=== PATIENT | male | born 1940 | race Caucasian/White ===

== ENCOUNTER 2017-06-30 10:10 | Emergency (ER) | payer MEDICARE ==
[2017-06-30] MEDS ORDERED: NORMAL SALINE 1000 ML 1,000 ML IV ONE ×2 (10:38→13:36)
--- NOTE | 2017-06-30 10:39 | ER Document Report ---
ED Medical Screen (RME) - General Chief Complaint: Abdominal Pain >50 Stated Complaint: ABDOMINAL PAIN Time Seen by Provider: 06/30/17 10:38 Notes: Patient has a several day history of generalized abdominal cramping and pain. Also has had some nausea and decreased appetite. Patient has been "lying in bed all day" per family. Patient was taken to primary care physician today and referred to the emergency department. TRAVEL OUTSIDE OF THE [place] IN LAST 30 DAYS: No - Related Data Allergies/Adverse Reactions: No Known Allergies Allergy (Verified 06/30/17 10:30) Past Medical History - Social History Frequency of alcohol use: None Drug Abuse: None Renal/ Medical History: Denies: Hx Peritoneal Dialysis Physical Exam - Vital signs Vitals: Temp Pulse Resp BP Pulse Ox 97.7 F 78 18 160/72 H 100 06/30/17 10:20 06/30/17 10:20 06/30/17 10:20 06/30/17 10:20 06/30/17 10:20 Course - Vital Signs Vital signs: Temp Pulse Resp BP Pulse Ox 97.7 F 78 18 160/72 H 100 06/30/17 10:20 06/30/17 10:20 06/30/17 10:20 06/30/17 10:20 06/30/17 10:20
[2017-06-30 11:21] LABS: HEMATOCRIT 35.1 % (37.9-51.0); HEMOGLOBIN 11.9 g/dL (13.5-17.0); MEAN CORPUSCULAR HEMOGLOBIN 28.5 pg (27.0-33.4); MEAN CORPUSCULAR HGB CONC 33.9 g/dL (32.0-36.0); MEAN CORPUSCULAR VOLUME 84 fl (80-97); PLATELET COUNT 301 10^3/uL (150-450); RED BLOOD COUNT 4.17 10^6/uL (4.35-5.55)
[2017-06-30 11:39] LABS: ALANINE AMINOTRANSFERASE 49 U/L (21-72); ALBUMIN 3.5 g/dL (3.5-5.0); ALKALINE PHOSPHATASE 140 U/L (38-126); ASPARTATE AMINO TRANSFERASE 29 U/L (17-59); BILIRUBIN,DIRECT 1.9 mg/dL (0.0-0.4); BILIRUBIN,TOTAL 1.9 mg/dL (0.2-1.3); CALCIUM 8.9 mg/dL (8.4-10.2); GLUCOSE 113 mg/dL (75-110); LIPASE 514.2 U/L (23-300); TOTAL PROTEIN 8.3 g/dL (6.3-8.2)
[2017-06-30 11:44] LABS: CARBON DIOXIDE 15 mmol/L (22-30); CHLORIDE 96 mmol/L (98-107); SODIUM 133.8 mmol/L (137-145)
[2017-06-30 11:45] LABS: ANION GAP 23 (5-19)
[2017-06-30 11:48] LABS: BLOOD UREA NITROGEN 187 mg/dL (7-20)
[2017-06-30 11:49] LABS: POTASSIUM 6.3 mmol/L (3.6-5.0)
[2017-06-30 11:50] LABS: ABSOLUTE LYMPHOCYTES# (MANUAL) 0.3 10^3/uL (0.5-4.7); ABSOLUTE MONOCYTES # (MANUAL) 0.6 10^3/uL (0.1-1.4); ABSOLUTE NEUTROPHILS# (MANUAL) 14.9 10^3/uL (1.7-8.2); BASOPHILS % (MANUAL) 0 % (0-2); EOSINOPHILS % (MANUAL) 1 % (0-6); LYMPHOCYTES % (MANUAL) 2 % (13-45); MONOCYTES % (MANUAL) 4 % (3-13); SEGMENTED NEUTROPHILS % (MAN) 93 % (42-78); TOTAL CELLS COUNTED 100
[2017-06-30] MEDS ORDERED: INSULIN REG, HUMAN 100 UNIT/ML 3 ML VIAL (PYX) IV ONE (11:51)
[2017-06-30] MEDS ORDERED: SODIUM BICARBONATE 8.4% INJ 50 MEQ/50 ML DISP.SYRIN IV ONE (11:51)
[2017-06-30] MEDS ORDERED: SODIUM POLYSTYRENE SULFONATE 15 GM/60 ML PO ONE ×2 (11:51→12:25)
[2017-06-30] MEDS ORDERED: DEXTROSE 50%-WATER 25 GM/50 ML DISP.SYRIN IV ONE (11:51)
[2017-06-30 11:52] LABS: BURR CELLS SLIGHT; POIKILOCYTOSIS SLIGHT; SCHISTOCYTES SLIGHT; TARGET CELLS SLIGHT; TOXIC GRANULATION 1+
[2017-06-30 12:00] LABS: PLATELET COMMENT ADEQUATE
[2017-06-30] MEDS ORDERED: ALBUTEROL SULFATE 0.083% NEB 2.5 MG/3 ML AMPUL NEB ONE (12:14)
[2017-06-30] MEDS ORDERED: CALCIUM GLUCONATE 1000 MG/10 ML INJ IV ONE (12:21)
--- NOTE | 2017-06-30 12:30 | ER Document Report ---
ED General - General Chief Complaint: Abdominal Pain >50 Stated Complaint: ABDOMINAL PAIN Time Seen by Provider: 06/30/17 10:38 Mode of Arrival: Wheelchair Information source: Patient, Relative Notes: 77 yr old male presents with complaints of not feeling well over the past 2 weeks has not been eating well patient has a history of hypertension no kidney problems TRAVEL OUTSIDE OF THE [place] IN LAST 30 DAYS: No - HPI Onset: Other Onset/Duration: Persistent Quality of pain: Achy Severity: Mild Pain Level: 1 Associated symptoms: Body/muscle aches, Nausea Exacerbated by: Denies Relieved by: Denies Similar symptoms previously: No Recently seen / treated by doctor: No - Related Data Allergies/Adverse Reactions: No Known Allergies Allergy (Verified 06/30/17 10:30) Past Medical History - Social History Smoking Status: Never Smoker Cigarette use (# per day): No Chew tobacco use (# tins/day): No Smoking Education Provided: No Frequency of alcohol use: None Drug Abuse: None Family History: Reviewed & Not Pertinent Patient has suicidal ideation: No Patient has homicidal ideation: No Renal/ Medical History: Denies: Hx Peritoneal Dialysis Review of Systems - Review of Systems Notes: REVIEW OF SYSTEMS: CONSTITUTIONAL : Admits to generalized malaise EENT: Denies eye, ear, throat, or mouth pain or symptoms. Denies nasal or sinus congestion or discharge. Denies throat, tongue, or mouth swelling or difficulty swallowing. CARDIOVASCULAR: Denies chest pain. Denies palpitations or racing or irregular heart beat. Denies ankle edema. RESPIRATORY: Denies cough, cold, or chest congestion. Denies shortness of breath, difficulty breathing, or wheezing. GASTROINTESTINAL: Admits to decreased appetite GENITOURINARY: Denies difficulty urinating, painful urination, burning, frequency, blood in urine, or discharge. MUSCULOSKELETAL: Denies back or neck pain or stiffness. Denies joint pain or swelling. SKIN: Denies rash, lesions or sores. HEMATOLOGIC : Denies easy bruising or bleeding. LYMPHATIC: Denies swollen, enlarged glands. NEUROLOGICAL: Denies confusion or altered mental status. Denies passing out or loss of consciousness. Denies dizziness or lightheadedness. Denies headache. Denies weakness or paralysis or loss of use of either side. Denies problems with gait or speech. Denies sensory loss, numbness, or tingling. Denies seizures. PSYCHIATRIC: Denies anxiety or stress. Denies depression, suicidal ideation, or homicidal ideation. ALL OTHER SYSTEMS REVIEWED AND NEGATIVE. Dictation was performed using [employer] voice recognition software PHYSICAL EXAMINATION: GENERAL: Cachectic male HEAD: Atraumatic, normocephalic. EYES: Pupils equal round and reactive to light, extraocular movements intact, sclera anicteric, conjunctiva are normal. ENT: Nares patent, oropharynx clear without exudates. Moist mucous membranes. NECK: Normal range of motion, supple without lymphadenopathy LUNGS: Breath sounds clear to auscultation bilaterally and equal. No wheezes rales or rhonchi. HEART: Regular rate and rhythm without murmurs ABDOMEN: Soft, nontender, nondistended abdomen. No guarding, no rebound. No masses appreciated. Musculoskeletal: Normal range of motion, no pitting or edema. No cyanosis. NEUROLOGICAL: Cranial nerves grossly intact. Normal speech, normal gait. Normal sensory, motor exams PSYCH: Normal mood, normal affect. SKIN: Warm, Dry, normal turgor, no rashes or lesions noted. Physical Exam - Vital signs Vitals: Temp Pulse Resp BP Pulse Ox 97.7 F 78 18 160/72 H 100 06/30/17 10:20 06/30/17 10:20 06/30/17 10:20 06/30/17 10:20 06/30/17 10:20 Course - Re-evaluation Re-evalutation: 06/30/17 12:30 Patient's lab work notes significant renal failure hyperkalemia, EKG immediately performed notes hyperacute T waves, patient will be immediately given calcium albuterol bicarb and insulin dextrose and Kayexalate, we do not have nephrology regional director today, [facility] was contacted immediately for transfer 06/30/17 18:30 Patient's repeat potassium level was noted to be improved to 5.8 from 6.3, repeat EKG noted similar-appearing peak T waves patient was transported to [facility] for further care with nephrology - Vital Signs Vital signs: Temp Pulse Resp BP Pulse Ox 98.8 F 78 19 144/69 H 99 06/30/17 15:31 06/30/17 14:51 06/30/17 15:46 06/30/17 15:46 06/30/17 15:46 - Laboratory Result Diagrams: 06/30/17 10:57 06/30/17 14:05 Laboratory results interpreted by me: 06/30/17 06/30/17 06/30/17 10:57 10:57 13:40 WBC 16.0 H RBC 4.17 L Hgb 11.9 L Hct 35.1 L RDW 17.0 H Seg Neuts % (Manual) 93 H Lymphocytes % (Manual) 2 L Abs Neuts (Manual) 14.9 H Abs Lymphs (Manual) 0.3 L Sodium 133.8 L Potassium 6.3 H* Chloride 96 L Carbon Dioxide 15 L Anion Gap 23 H BUN 187 H Creatinine 11.21 H Est GFR ( Amer) 5 L Est GFR (Non-Af Amer) 4 L Glucose 113 H Calcium Total Bilirubin 1.9 H Direct Bilirubin 1.9 H Alkaline Phosphatase 140 H Total Protein 8.3 H Albumin Lipase 514.2 H Urine Protein 30 H Urine Glucose (UA) 50 H Urine Blood LARGE H Ur Leukocyte Esterase LARGE H 06/30/17 14:05 WBC RBC Hgb Hct RDW Seg Neuts % (Manual) Lymphocytes % (Manual) Abs Neuts (Manual) Abs Lymphs (Manual) Sodium 134.7 L Potassium 5.8 H Chloride 97 L Carbon Dioxide 12 L Anion Gap 26 H BUN 178 H Creatinine 10.89 H Est GFR ( Amer) 6 L Est GFR (Non-Af Amer) 5 L Glucose 211 H Calcium 8.3 L Total Bilirubin 1.7 H Direct Bilirubin 1.7 H Alkaline Phosphatase Total Protein Albumin 2.7 L Lipase Urine Protein Urine Glucose (UA) Urine Blood Ur Leukocyte Esterase Critical Care Note - Critical Care Note Total time excluding time spent on procedures (mins): 49 Comments: 49 minutes of critical care time spent in direct contact evaluating and reevaluating the patient, treating symptoms, reviewing labs and studies and speaking with family and consultants excluding any procedures Discharge - Discharge Clinical Impression: Hyperkalemia, Dehydration Acute renal failure Qualifiers: Acute renal failure type: unspecified Qualified Code(s): N17.9 - Acute kidney failure, unspecified Condition: Fair Disposition: [facility] Referrals: DARIUSZ ABEBE MD [Primary Care Provider] - Follow up as needed
--- NOTE | 2017-06-30 13:02 | EKG REPORT ---
SEVERITY:- NORMAL ECG - SINUS RHYTHM : Confirmed by: Aram Shore MD 30-Jun-2017 13:01:51
[2017-06-30 14:28] LABS: APPEARANCE,URINE CLOUDY; BILIRUBIN,URINE NEGATIVE (NEGATIVE); COLOR,URINE YELLOW; GLUCOSE, URINE 50 mg/dL (NEGATIVE); KETONES,URINE NEGATIVE (NEGATIVE); LEUKOCYTE ESTERASE,URINE LARGE (NEGATIVE); NITRITE,URINE NEGATIVE (NEGATIVE); PROTEIN,URINE 30 mg/dL (NEGATIVE); UROBILINOGEN,URINE NEGATIVE mg/dL (<2.0)
--- NOTE | 2017-06-30 14:51 | RADIOLOGY REPORT (SQ) ---
EXAM DESCRIPTION: CT LTD RENAL STONE PROTOCOL ON COMPLETED DATE/TIME: 06/30/2017 2:38 pm REASON FOR STUDY: acute renal failure COMPARISON: None. TECHNIQUE: CT scan of the abdomen and pelvis performed without intravenous or oral contrast. Images reviewed with lung, soft tissue, and bone windows. Reconstructed coronal and sagittal MPR images revi ewed. All images stored on PACS. All CT scanners at this facility use dose modulation, iterative reconstruction, and/or weight based d osing when appropriate to reduce radiation dose to as low as reasonably achievable (ALARA). [facility]: Dose Right [facility]: CareDose [facility]: Dose Right [facility]: Teradose 4D [facility]: [email or web address] RADIATION DOSE: 4.97mGy. LIMITATIONS: No oral contrast. Slender patient. Appendix not identified FINDINGS: LOWER CHEST: Heavily calcified pleural plaques at the lung bases. Small hiatal hernia. NON-CONTRASTED LIVER, SPLEEN, ADRENALS: Set PANCREAS: No masses. No peripancreatic inflammatory changes. GALLBLADDER: No identified stones by CT criteria. No inflammatory changes to suggest cholecystitis. RIGHT KIDNEY AND URETER: No suspicious masses. Assessment limited by lack of IV contrast. No signif icant calcifications. No hydronephrosis or hydroureter. LEFT KIDNEY AND URETER: No suspicious masses. Assessment limited by lack of IV contrast. No signifi cant calcifications. No hydronephrosis or hydroureter. AORTA AND RETROPERITONEUM: No aneurysm. No retroperitoneal masses or adenopathy. BOWEL AND PERITONEAL CAVITY: No obvious masses or inflammatory changes. No free fluid. APPENDIX: Not identified. PELVIS, BLADDER, AND ABDOMINAL WALL:No abnormal masses. No free fluid. Bladder normal. BONES: No significant findings. OTHER: No other significant finding. IMPRESSION: No CT evidence of obstructive urinary calculi, or hydronephrosis. No bowel obstruction. No gross free intraperitoneal air or fluid. Appendix not identified. COMMENT: Quality ID # [id number]: Final reports with documentation of one or more dose reduction techniques (e.g., Automated exposure control, adjustment of the mA and/or kV according to patient size, use of iterative reconstruction technique) TECHNICAL DOCUMENTATION: JOB ID: [id number] [employer]- All Rights Reserved Reading location - IP/workstation name: [email or web address]
[2017-06-30 14:54] LABS: ALANINE AMINOTRANSFERASE 43 U/L (21-72); ALBUMIN 2.7 g/dL (3.5-5.0); ALKALINE PHOSPHATASE 111 U/L (38-126); ASPARTATE AMINO TRANSFERASE 20 U/L (17-59); BILIRUBIN,DIRECT 1.7 mg/dL (0.0-0.4); BILIRUBIN,TOTAL 1.7 mg/dL (0.2-1.3); CALCIUM 8.3 mg/dL (8.4-10.2); GLUCOSE 211 mg/dL (75-110); POTASSIUM 5.8 mmol/L (3.6-5.0); TOTAL PROTEIN 6.5 g/dL (6.3-8.2)
[2017-06-30 14:59] LABS: CARBON DIOXIDE 12 mmol/L (22-30); CHLORIDE 97 mmol/L (98-107); SODIUM 134.7 mmol/L (137-145)
[2017-06-30 15:03] LABS: ANION GAP 26 (5-19); BLOOD UREA NITROGEN 178 mg/dL (7-20)
[2017-06-30 16:07] VITALS: BP 144/69
--- NOTE | 2017-06-30 18:10 | EKG REPORT ---
SEVERITY:- BORDERLINE ECG - SINUS TACHYCARDIA BORDERLINE INFERIOR Q WAVES BORDERLINE T ABNORMALITIES, INFERIOR LEADS : Confirmed by: Aram Shore MD 30-Jun-2017 18:08:43
== END 2017-06-30 16:00 | disposition short-term general hospital (02) ==
LOC: ER 10:10
DX: N17.9 Acute kidney failure, unspecified (principal); E86.0 Dehydration; E87.5 Hyperkalemia; R10.9 Unspecified abdominal pain; I10 Essential (primary) hypertension; R11.0 Nausea; R53.81 Other malaise; R63.0 Anorexia
CPT/HCPCS: 93005; 94640; 99285; 96361; 96374; 96375; 36415; 83690; 85025; 80053; 81001; 76380; 93010; J0610; J3490 ×2; A9270 ×2; J7030; J1815